=== PATIENT | female | born 2000 | race Caucasian/White ===

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

== ENCOUNTER 2020-02-06 13:25 | Emergency (ER) | payer MEDICAID, OTHER ==
[~2020-02-06] VITALS: Ht 167 cm; Wt 56.0 kg
[~2020-02-06 13:25] MED LIST changes: -MONT10TA24; +MONT10TA26
[2020-02-06] MEDS ORDERED: LIDOCAINE/EPI 2% 1:100,00 (XYLOCAINE) 20 ML VIAL ONE (13:39)
[2020-02-06] MEDS ORDERED: SULF1TAB35 PO (13:56)
--- NOTE | 2020-02-06 13:56 | ED Integumentary General ---
General Chief Complaint: Skin/Wound Problems Stated Complaint: SKIN IRRITATION AROUND ABDOMEN Nursing Triage Note: REPORTS AN ABSCESS ON HER ABDOMEN X 2 WEEKS. History of Present Illness Date Seen by Provider: Feb 06, 2020 Time Seen by Provider: 13:57 Initial Comments Patient presenting to emergency department for evaluation of left lower abdominal wall wound that appears to be consistent with abscess. She says that it started as a tiny red bump 2 weeks ago and has increased in size and pain. She has not had any abdominal pain fevers chills nausea vomiting or other systemic symptoms. She is in no obvious distress with normal vital signs. Allergies and Home Medications Allergies Uncoded Allergies: PENICILLIN (Adverse Reaction, Unknown, 02/06/19) Home Medications Hydroxyzine Pamoate 25 Mg Capsule, 25-50 MG PO Q6H PRN for ANXIETY Prescribed by: TRACE WHALEN on 02/06/19 1717 Sulfamethoxazole/Trimethoprim 1 Each Tablet, 2 EACH PO BID Prescribed by: YI HULL on 02/06/20 1356 Patient Home Medication List Home Medication List Reviewed: Yes Review of Systems Review of Systems Constitutional: no symptoms reported Respiratory: no symptoms reported Cardiovascular: no symptoms reported Gastrointestinal: no symptoms reported Skin: lesions All Other Systems Reviewed Negative Unless Noted: Yes Past Jzhqdxp-Phtiwf-Mzijaw Hx Patient Social History Alcohol Use: Denies Use Recreational Drug Use: Yes (DENIES) Drug of Choice: MARIJUANA Smoking Status: Current Everyday Smoker Type Used: Cigarettes 2nd Hand Smoke Exposure: Yes Recent Foreign Travel: No Contact w/Someone Who Travel: No Recent Hopitalizations: No Ebola Symptoms: Denies Symptoms Listed Physical Abuse: No Sexual Abuse: No Mistreated: No Fear: No Immunizations Up To Date Tetanus Booster (TDap): Unknown Seasonal Allergies Seasonal Allergies: Yes Past Medical History Surgeries: Yes (COLONOSCOPY) Respiratory: No Cardiac: No Neurological: No Genitourinary: No Gastrointestinal: No Musculoskeletal: No Endocrine: Yes Hypothyroidsim HEENT: No Cancer: No Psychosocial: Yes Anxiety, Depression Blood Disorders: No Adverse Reaction/Blood Tranf: No Physical Exam Vital Signs Vital Signs - First Documented 02/06/20 13:35 Temp 37.0 Pulse 108 Resp 16 B/P (MAP) 125/89 Pulse Ox 98 O2 Delivery Room Air Capillary Refill : General Appearance: WD/WN, no apparent distress Gastrointestinal: non tender, soft Skin: other (appx 3x3 cm abscess with surrounding erythema that is ttp. Abscess is appx 4cm inferior and 4cm lateral to umbillicus) Procedures/Interventions I&D : Blade Size: 11 I & D Procedure: betadine prep, sterile drapes applied, gauze wick placed Packing/Drain: Idoform / Progress Wound prepped and draped in normal sterile fashion and approximately 6 cc of lidocaine with epinephrine. Approximate 1.5 cm horizontal incision was made so with a large amount of purulence expressed. Wound was irrigated copiously with saline and I was able to express even more purulence. I deformed packing was placed and wound was dressed and there is no complications noted. Progress/Results/Core Measures Results/Orders My Orders Orders - YI HULL DO Lidocaine/Epi 2% 1:100,000 (Xylocaine/Ep (02/06/20 13:39) Vital Signs/I&O 02/06/20 13:35 Temp 37.0 Pulse 108 Resp 16 B/P (MAP) 125/89 Pulse Ox 98 O2 Delivery Room Air Progress Progress Note : Progress Note Patient had a significant amount of purulence expressed from the wound. She does not have any abdominal tenderness to palpation anywhere else so do not think there is any fistula or to medication into her intraperitoneal region. She was told to come back in 2 days for a wound recheck and come back to the ED sooner with worsening pain fevers vomiting or other general concerns. Patient aware and agreeable with plan for discharge and verbalized understanding of the need for short-term follow-up and strict ED return precautions discussed as above. Departure Impression Primary Impression: Abdominal wall abscess Disposition: 01 HOME, SELF-CARE Condition: Stable Departure-Patient Inst. Referrals: NO,LOCAL PHYSICIAN (PCP/Family) Primary Care Physician Patient Instructions: Abscess Incision and Drainage Add. Discharge Instructions: Come back in 2 days for wound recheck All discharge instructions reviewed with patient and/or family. Voiced understanding. Scripts Sulfamethoxazole/Trimethoprim (Bactrim Ds Tablet) 1 Each Tablet 2 EACH PO BID for 7 Days, TAB Prov: YI HULL DO 02/06/20 YI HULL DO Feb 06, 2020 13:56
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
== END 2020-02-06 14:00 | disposition home or self-care (01) ==
LOC: EDUNIT# 13:25 → ER FS 13:29
DX: L02.211 Cutaneous abscess of abdominal wall (principal); F41.9 Anxiety disorder, unspecified; F32.9 Major depressive disorder, single episode, unspecified; F17.210 Nicotine dependence, cigarettes, uncomplicated; Z88.0 Allergy status to penicillin
CPT/HCPCS: 10060

== ENCOUNTER 2020-02-08 11:17 | Emergency (ER) | payer SELFPAY ==
[~2020-02-08] VITALS: Ht 153 cm; Wt 60.0 kg
[~2020-02-08 11:17] MED LIST changes: +SULF1TAB35 PO
[2020-02-08 11:52] VITALS: BP 113/76
--- NOTE | 2020-02-08 11:55 | ED Suture Removal/Wound Check ---
Suture/Wound Re-check Suture Removal/Wound Recheck : Suture Removal/Wound Recheck: Packing removed Progress Patient with abdominal wall abscess that is improving. No worsening pain, fevers, vomiting, or other systemic symptoms. She is taking bactrim but pharmacy filled it 1 PO bid instead of 2 PO bid I wrote for. General Appearance: WD/WN, no apparent distress Skin Exam: warm/dry, other (erythema around wound, no worsening drainage or pain. No abdominal ttp.) Comments Wound repacked by me. Told she doesn't have to come back in 2 days if there is no further drainage and wound will be hard but will heal on its own. Told she can return if persisting or worsening. Told to take the rest of her bactrim 2 PO bid. Patient aware and agreeable with plan. Physical Exam Vital Signs Vital Signs - First Documented 02/08/20 11:50 Temp 36.4 Pulse 88 Resp 16 B/P (MAP) 113/76 Pulse Ox 98 O2 Delivery Room Air Capillary Refill : General Appearance: WD/WN, no apparent distress Departure Impression Primary Impression: Abscess of abdominal wall Disposition: 01 HOME, SELF-CARE Condition: Stable Departure-Patient Inst. Patient Instructions: Wound Care (DC) YI HULL DO Feb 08, 2020 11:55
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
== END 2020-02-08 11:53 | disposition home or self-care (01) ==
LOC: EDUNIT# 11:17 → ER FS 11:19
DX: L02.211 Cutaneous abscess of abdominal wall (principal)

== ENCOUNTER 2020-06-22 10:40 | Emergency (ER) | payer OTHER, BC, MEDICAID ==
[2020-06-22 10:46] VITALS: BP 97/69
--- NOTE | 2020-06-22 11:30 | ED Upper Extremity ---
General Chief Complaint: Upper Extremity Stated Complaint: RT THUMB INJ Nursing Triage Note: shut thumb in car door last night around midnight. Nursing Sepsis Screen: No Definite Risk Source: patient Exam Limitations: no limitations History of Present Illness Date Seen by Provider: Jun 22, 2020 Time Seen by Provider: 10:45 Initial Comments The patient is a pleasant 20-year-old female who presents for evaluation of an injury to the left thumb. She says that around midnight last night she accidentally shut her car door on her thumb in the door close fully. There is a small superficial laceration adjacent to the nail but no injury to the nail or nailbed. The distal part of the thumb is swollen and there is some bruising. She has full range of motion of the thumb and denies any other injuries. Her last tetanus was updated 2 years ago. She is alert and oriented 4, calm, and appears to be in no distress at this time. Onset: yesterday Severity: moderate Pain/Injury Location: left thumb Method of Injury: direct blow Allergies and Home Medications Allergies Uncoded Allergies: PENICILLIN (Adverse Reaction, Unknown, 02/06/19) Home Medications Hydroxyzine Pamoate 25 Mg Capsule, 25-50 MG PO Q6H PRN for ANXIETY Prescribed by: TRACE WHALEN on 02/06/19 1717 Sulfamethoxazole/Trimethoprim 1 Each Tablet, 2 EACH PO BID Prescribed by: YI HULL on 02/06/20 1356 Patient Home Medication List Home Medication List Reviewed: Yes Review of Systems Constitutional: no symptoms reported EENTM: no symptoms reported Respiratory: no symptoms reported Cardiovascular: no symptoms reported Gastrointestinal: no symptoms reported Genitourinary: no symptoms reported Musculoskeletal: no symptoms reported Skin: no symptoms reported Psychiatric/Neurological: No Symptoms Reported All Other Systems Reviewed Negative Unless Noted: Yes Past Hfzoacv-Rkssdd-Yjazdp Hx Past Med/Social Hx: Reviewed Nursing Past Med/Soc Hx Patient Social History Alcohol Use: Denies Use Recreational Drug Use: Yes Drug of Choice: MARIJUANA Smoking Status: Current Everyday Smoker Type Used: Cigarettes 2nd Hand Smoke Exposure: Yes Recent Foreign Travel: No Contact w/Someone Who Travel: No Recent Infectious Disease Expo: No Recent Hopitalizations: No Physical Abuse: No Sexual Abuse: No Mistreated: No Fear: No Immunizations Up To Date Tetanus Booster (TDap): Unknown Seasonal Allergies Seasonal Allergies: Yes Past Medical History Surgeries: Yes (COLONOSCOPY) Respiratory: No Cardiac: No Neurological: No Genitourinary: No Gastrointestinal: No Musculoskeletal: No Endocrine: Yes Hypothyroidsim HEENT: No Cancer: No Psychosocial: Yes Anxiety, Depression Integumentary: No Blood Disorders: No Adverse Reaction/Blood Tranf: No Physical Exam Vital Signs Vital Signs - First Documented 06/22/20 10:46 Temp 36.7 Pulse 111 Resp 16 B/P (MAP) 97/69 (78) Pulse Ox 99 Capillary Refill : Less Than 3 Seconds Height, Weight, BMI Height: 5'0" Weight: 140lbs. oz. 63.619405yv; 20.00 BMI Method:Actual General Appearance: WD/WN HEENT: PERRL/EOMI, normal ENT inspection Neck: full range of motion, normal inspection Cardiovascular: regular rate, rhythm, no edema, no JVD Respiratory: normal breath sounds, no respiratory distress, no accessory muscle use Shoulder: normal inspection, non-tender, no evidence of injury, normal ROM Elbow/Forearm: normal inspection, non-tender, no evidence of injury, normal ROM, Bilateral Wrist: Yes normal inspection, Yes non-tender, Yes no evidence of injury, Yes normal ROM Hand: normal ROM, Bilateral, soft tissue tenderness (soft tissue swelling and ecchymosis to the distal left thumb, superficial laceration adjacent to the nail with no dehiscence and no bleeding, no sign of infection, full range of motion is present, no subungual hematoma) Neurologic/Psychiatric: media reporter II-XII nml as tested, no motor/sensory deficits, alert, normal mood/affect, oriented x 3 Skin: normal color, warm/dry Progress/Results/Core Measures Results/Orders My Orders Orders - JUAN RAMON GARCIA DO Finger(S) (06/22/20 10:55) Vital Signs/I&O 06/22/20 10:46 Temp 36.7 Pulse 111 Resp 16 B/P (MAP) 97/69 (78) Pulse Ox 99 Blood Pressure Mean: 78 Progress Progress Note : Progress Note @1135 - patient advised to apply ice and take Tylenol and/or ibuprofen as needed for pain relief. She is to keep the superficial wound clean and dry and change the bandage daily. Advised the patient to follow-up with her PCP in the next 2-3 days and to return to the Emergency Department immediately for new or worsening symptoms. Departure Impression Primary Impression: Injury of thumb, left Disposition: 01 HOME, SELF-CARE Condition: Stable Departure-Patient Inst. Decision time for Depature: 11:38 Referrals: NO,LOCAL PHYSICIAN (PCP/Family) Primary Care Physician Patient Instructions: Common Finger Injuries (DC), Contusion (DC), Crush Injury (DC) Add. Discharge Instructions: Take ibuprofen or Tylenol home for pain relief. He can also apply ice for 15 minutes at a time to help reduce swelling. Keep extremity elevated to reduce swelling. Change your bandage daily and apply a topical antibiotic like Neosporin. Return to the emergency Department immediately for new or worsening symptoms. JUAN RAMON GARCIA DO Jun 22, 2020 11:30
--- NOTE | 2020-06-22 11:46 | Diagnostic Imaging Report ---
EXAMINATION: Right hand, single view. Right thumb, 2 additional views. COMPARISON: None. HISTORY: 20-year-old female, smashed injury of the thumb. FINDINGS: There is no identified acute fracture. There is no identified subluxation or dislocation. There is no identified radiopaque foreign body. Joint spaces are well preserved. IMPRESSION: No acute bony abnormality of the right thumb. Dictated by: Dictated on workstation # [id number]
== END 2020-06-22 11:51 | disposition home or self-care (01) ==
LOC: EDUNIT# 10:40 → ER FS 10:42
DX: S61.112A Laceration without foreign body of left thumb with damage to nail, initial encounter (principal); S60.012A Contusion of left thumb without damage to nail, initial encounter; F41.9 Anxiety disorder, unspecified; F17.210 Nicotine dependence, cigarettes, uncomplicated; Z88.0 Allergy status to penicillin; W23.1XXA Caught, crushed, jammed, or pinched between stationary objects, initial encounter
CPT/HCPCS: 73140